=== PATIENT | female | born 2000 | race African-American/Black ===

== ENCOUNTER 2020-06-10 14:11 | Emergency (ER) | payer OTHER ==
[~2020-06-10] VITALS: Ht 154.9 cm; Wt 74.8 kg
[2020-06-10] MEDS ORDERED: TIZANIDINE HCL 22 M1 PO (14:39)
[2020-06-10] MEDS ORDERED: BUSPIRONE HCL10 MG PO (14:40)
[2020-06-10] MEDS ORDERED: WELLBUTRIN XL150 MG PO (14:40)
[2020-06-10] MEDS ORDERED: HYDROXYZINE PAM50 MG PO (14:40)
[2020-06-10] MEDS ORDERED: CYMBALTA30 MG PO (14:41)
[2020-06-10 16:02] LABS: HEMATOCRIT 36.4 % (37.0-47.0); HEMOGLOBIN 12.2 gm/dL (12.0-15.0); MCHC 33.5 g/dL (28.0-37.0); MCV 86.4 fL (80.0-100.0); RBC 4.21 mil/uL (4.20-5.00); RDW 13.4 % (10.5-14.5); WBC 9.2 thou/uL (4.0-11.0)
[2020-06-10 16:26] LABS: ANION GAP 9 mmol/L (7-16); BUN 16 mg/dL (7-18); CALCIUM 8.2 mg/dL (8.5-10.1); CHLORIDE 107 mmol/L (98-107); CO2 28 mmol/L (21-32); CREATININE 0.8 mg/dL (0.6-1.0); GLUCOSE 107 mg/dL (74-106); POTASSIUM 3.7 mmol/L (3.5-5.1); SALICYLATE < 2.8 mg/dL (2.8-20.0); SODIUM 144 mmol/L (136-145)
[2020-06-10 17:57] VITALS: BP 128/87
== END 2020-06-10 17:57 | disposition home or self-care (01) ==
LOC: ER 14:11
PROVIDERS: Emergency Medicine
DX: R07.89 Other chest pain (principal); Z79.899 Other long term (current) drug therapy; Z91.011 Allergy to milk products; Z91.018 Allergy to other foods; V49.9XXA Car occupant (driver) (passenger) injured in unspecified traffic accident, initial encounter; Y93.89 Activity, other specified; Y92.89 Other specified places as the place of occurrence of the external cause; Y99.8 Other external cause status